=== PATIENT | male | born 1995 | race Caucasian/White ===

== ENCOUNTER 2017-08-30 16:11 | Emergency (ER) | payer OTHER, SELFPAY ==
[2017-08-30 16:53] VITALS: BP 106/57; PULSE 117; RESP 22; TEMP 38.2; O2SAT 97; BMI 30.7
[2017-08-30 17:07] LABS: UTC Influenza A Antigen Negative (Negative); UTC Influenza B Antigen Negative (Negative)
--- NOTE | 2017-08-30 17:25 | HMH.EDUTC ---
[facility] [place] Clinical Impression: Allergic reaction Qualifiers: Encounter type: initial encounter Qualified Code(s): T78.40XA - Allergy, unspecified, initial encounter Disposition: Home, Self-Care Condition on Discharge: Good Instructions: DI for General Allergic Reactions Additional Instructions: Follow up with family doctor/oncologist tomorrow as instructed Over the counter Benadryl as needed for rash or itching If rash returns/Worsens or you began having trouble breathing go straight to the ER Return if needed Look at home and see what you possibly could be having an allergic reaction to Time of Disposition: 18:17 Medical Decision Making Vital Signs: 08/30/17 16:53 Temperature 100.8 F H Temperature Source Temporal Artery Scan Pulse Rate [Right] 117 H Respiratory Rate 22 Blood Pressure [Right Arm] 106/57 Blood Pressure Mean [Right Arm] 73 Blood Pressure Source [Right Arm] Automatic Cuff Blood Pressure Position [Right Arm] Sitting 02 Sat by Pulse Oximetry 97 Oxygen Delivery Method Room Air - Lab Data Lab Results 08/30/17 16:52: Influenza Type A Ag Negative, Influenza Type B Ag Negative 08/30/17 17:06: Strep Scn Rapid Clinic Negative Orders (Tests/Meds): ED MEDICATIONS Generic Name Dose Route Start Last Admin Trade Name Freq PRN Reason Stop Dose Admin Loratadine 10 mg 08/30/17 17:45 08/30/17 17:43 Claritin 10mg Tablet PO 09/29/17 17:44 10 mg DAILY [place] Administration Discontinued Medications Generic Name Dose Route Start Last Admin Trade Name Freq PRN Reason Stop Dose Admin Diphenhydramine HCl 25 mg 08/30/17 17:32 08/30/17 17:43 Benadryl 50mg/1ml Vial IM 08/30/17 17:33 25 mg ONCE ONE Administration Famotidine 20 mg 08/30/17 17:32 08/30/17 17:43 Pepcid 20mg Tablet PO 08/30/17 17:33 20 mg ONCE ONE Administration Methylprednisolone Sodium Succinate 125 mg 08/30/17 17:32 08/30/17 17:43 Solu-Medrol 125mg/2ml Vial IM 08/30/17 17:33 125 mg ONCE ONE Administration ORDERS Category Date Time Status Strep Screen Confirmation Stat Micro 08/30/17 17:06 Received - [place] Inquiry Pt receiving controlled substance: No [place] was queried for this patient: No - Reevaluation(s) Time: 18:13 (Rash on face and back improved no longer seen, small rash still on neck but no longer itching State that he feel much better) [facility] [place] - General Stated complaint: Rash, Vomiting Mode of Arrival: Ambulatory Source of Information: Patient Limitations: No Limitations Description of Symptoms (Recalled from Triage Doc. by RN): RASH, VOMITING HEENT Symptoms (Recalled from RN notes): No Resp Symptoms (Recalled from RN notes): No Skin Symptoms (Recalled from RN notes): Yes MS Symptoms (Recalled from RN notes): No Functional Status (Recalled from RN notes): N - History of Present Illness Provider Complaint: Patient states that he has a history of brain tumors and took Chemo last week State that he is unsure what he may have got into but thinks he may be having an allergic reaction to something States that he has raised rash and hives all over his body and he is itching and digging at his skin State that he had a couple eppisodes of vomiting earlier today also State that he is unsure what he may be having a reaction that he has not changed anything at home - Related Data Home Medications Medication Instructions Recorded Confirmed levETIRAcetam [Keppra] 1,250 mg PO DAILY 08/30/17 08/30/17 Allergies Allergy/AdvReac Type Severity Reaction Status Date / Time No Known Allergies Allergy Verified 08/30/17 17:00 - Worker's Comp Is this a Worker's Comp case?: No [facility] History Other Surgeries: Yes: Cancer Surgery - *Social History Smoking Status: Never smoker Alcohol Intake: never - Psychiatric History Expresses thoughts of harming self/others: None Suicide Plan Description: No Plan ROS Obtained: Yes All systems reviewed & no addition
[2017-08-30 17:44] LABS: UTC Strep Screen (Rapid) Negative (Negative)
== END 2017-08-30 18:27 | disposition home or self-care (01) ==
PROVIDERS: Emergency Provider Nurse Practitioner
DX: L27.0 Generalized skin eruption due to drugs and medicaments taken internally (principal); T50.905A Adverse effect of unspecified drugs, medicaments and biological substances, initial encounter; D49.6 Neoplasm of unspecified behavior of brain; Z79.899 Other long term (current) drug therapy
CPT/HCPCS: 87804; 87880; 96372; 99202

== ENCOUNTER → 2017-10-17 10:33 | Outpatient (CLI) | payer OTHER, SELFPAY ==
[2017-10-17 13:15] LABS: Basophils % 0.4 % (0.1-2.0); Eosinophils # 0.1 K/mm3 (0.0-0.4); Eosinophils % 0.8 % (0.1-12.0); Hematocrit 43.1 % (42.0-52.0); Lymphocytes # 0.7 K/mm3 (0.7-4.5); Lymphocytes % 10.5 K/mm3 (10-50); Mean Corpuscular HGB Conc 32.4 g/dL (31.8-35.4); Mean Corpuscular Hemoglobin 29.4 pg (27.0-31.2); Mean Corpuscular Volume 90.9 fl (80-94); Mean Platelet Volume 7.6 fl (7.4-10.4); Monocytes # 0.4 K/mm3 (0.1-1.0); Monocytes % 6.5 % (1.7-9.3); Neutrophils # 5.4 K/mm3 (1.8-7.8); Neutrophils % 81.7 % (37.0-80.0); Platelet Count 173 K/mm3 (142-424); Red Blood Count 4.75 M/mm3 (4.60-6.20); Red Cell Distribution Width 13.2 % (11.5-17.5); White Blood Count 6.6 K/mm3 (4.5-13.0)
[2017-10-17 15:33] LABS: Alanine Aminotransferase 27 U/L (12-78); Albumin Level 3.9 gm/dL (3.4-5.0); Albumin/Globulin Ratio 1.2 (1.1-1.8); Alkaline Phosphatase 102 U/L (46-116); Aspartate Amino Transferase 6 U/L (15-37); Bilirubin,Total 0.6 mg/dL (0.2-1.0); Blood Urea Nitrogen 16 mg/dL (7-18); Calcium 8.5 mg/dL (8.5-10.1); Carbon Dioxide 29 mmol/L (21.0-32.0); Creatinine,Serum 0.95 mg/dL (0.70-1.30); Estimated Glomerular Filt Rate 101 ml/min (>60); GFR (African American) 122 ML/MIN (>60); Globulin 3.2 gm/dl (1.3-3.2); Glucose 101 mg/dL (74-106); Magnesium 1.8 mg/dL (1.4-2.2); Phosphorous 3.6 mg/dL (2.4-4.9); Total Protein,Serum 7.1 gm/dL (6.4-8.2)
[2017-10-17 18:10] LABS: Chloride 104 mmol/L (98-107); Sodium 142 mmol/L (136-145)
== END ==
PROVIDERS: PCP Family Medicine; Visit Provider Pediatrics Pediatric Hematology-Oncology
DX: D49.7 Neoplasm of unspecified behavior of endocrine glands and other parts of nervous system (principal)
CPT/HCPCS: 36415; 80053; 83735; 84100; 85025

== ENCOUNTER 2018-08-16 13:44 | Outpatient (RCR) | payer MEDICAID, SELFPAY | END 2018-08-16 13:50 | disposition home or self-care (01) | LOC: PT 13:44 | DX: G82.20 Paraplegia, unspecified (principal) | CPT/HCPCS: 97163 ==

== ENCOUNTER → 2018-08-17 11:21 | Outpatient (CLI) | payer MEDICAID, SELFPAY ==
[2018-08-17 13:49] LABS: Basophils % 0.7 % (0.1-2.0); Eosinophils % 0.2 % (0.1-12.0); Hematocrit 31.8 % (42.0-52.0); Hemoglobin 10.1 g/dL (14.1-18.0); Lymphocytes # 0.5 K/mm3 (0.7-4.5); Mean Corpuscular HGB Conc 31.8 g/dL (31.8-35.4); Mean Corpuscular Hemoglobin 32.8 pg (27.0-31.2); Mean Corpuscular Volume 103.4 fl (80-94); Mean Platelet Volume 7.9 fl (7.4-10.4); Monocytes # 0.5 K/mm3 (0.1-1.0); Monocytes % 8.9 % (1.7-9.3); Neutrophils # 4.9 K/mm3 (1.8-7.8); Neutrophils % 81.1 % (37.0-80.0); Platelet Count 76 K/mm3 (142-424); Red Blood Count 3.08 M/mm3 (4.60-6.20)
[2018-08-17 14:22] LABS: Red Cell Distribution Width 26.6 % (11.5-17.5)
== END ==
PROVIDERS: PCP Internal Medicine Adolescent Medicine; Visit Provider Nurse Practitioner Pediatrics
DX: D49.7 Neoplasm of unspecified behavior of endocrine glands and other parts of nervous system (principal); C71.9 Malignant neoplasm of brain, unspecified
CPT/HCPCS: 36415; 85025

== ENCOUNTER 2018-09-13 11:00 | Outpatient (RCR) | payer MEDICAID, SELFPAY | END 2018-09-13 11:05 | disposition home or self-care (01) | LOC: OT 11:00 | DX: D49.7 Neoplasm of unspecified behavior of endocrine glands and other parts of nervous system (principal); G82.20 Paraplegia, unspecified | CPT/HCPCS: 97110; 97166 ==

== ENCOUNTER → 2018-11-13 11:06 | Outpatient (CLI) | payer MEDICAID, SELFPAY ==
[2018-11-13 14:17] LABS: Basophils # 0.1 K/mm3 (0-0.2); Basophils % 0.9 % (0.1-2.0); Eosinophils # 0.1 K/mm3 (0.0-0.4); Eosinophils % 1.6 % (0.1-12.0); Hematocrit 39.9 % (42.0-52.0); Hemoglobin 12.4 g/dL (14.1-18.0); Lymphocytes # 0.6 K/mm3 (0.7-4.5); Lymphocytes % 9.5 % (10-50); Mean Corpuscular HGB Conc 31.2 g/dL (31.8-35.4); Mean Corpuscular Hemoglobin 32.3 pg (27.0-31.2); Mean Corpuscular Volume 103.4 fl (80-94); Mean Platelet Volume 8.8 fl (7.4-10.4); Monocytes # 0.5 K/mm3 (0.1-1.0); Monocytes % 8.5 % (1.7-9.3); Neutrophils % 79.4 % (37.0-80.0); Platelet Count 197 K/mm3 (142-424); Red Blood Count 3.86 M/mm3 (4.60-6.20); Red Cell Distribution Width 17.3 % (11.5-17.5); White Blood Count 6.3 K/mm3 (4.8-10.8)
[2018-11-13 14:54] LABS: Alanine Aminotransferase 170 U/L (12-78); Alkaline Phosphatase 60 U/L (46-116); Anion Gap 16.7 mEq/L (5-15); Aspartate Amino Transferase 94 U/L (15-37); Bilirubin,Direct 0.1 mg/dL (0.0-0.2); Bilirubin,Indirect 0.2 mg/dL (0.0-0.9); Bilirubin,Total 0.3 mg/dL (0.2-1.0); Blood Urea Nitrogen 6 mg/dL (7-18); Calcium 9.2 mg/dL (8.5-10.1); Carbon Dioxide 27 mmol/L (21.0-32.0); Chloride 103 mmol/L (98-107); Creatinine,Serum 0.62 mg/dL (0.70-1.30); Estimated Glomerular Filt Rate 164 ml/min (>60); GFR (African American) 198 ML/MIN (>60); Glucose 105 mg/dL (74-106); Phosphorous 5.6 mg/dL (2.4-4.9); Potassium 3.7 mmoL/L (3.5-5.1); Sodium 143 mmol/L (136-145); Total Protein,Serum 6.1 gm/dL (6.4-8.2)
== END ==
PROVIDERS: PCP Internal Medicine Adolescent Medicine; Visit Provider Nurse Practitioner Pediatrics
DX: C71.9 Malignant neoplasm of brain, unspecified (principal)
CPT/HCPCS: 36415; 80069; 82247; 82248; 83735; 84075; 84155; 84450; 84460; 85025

== ENCOUNTER → 2018-11-28 08:20 | Outpatient (CLI) | payer MEDICAID, SELFPAY ==
[2018-11-28 13:50] LABS: Basophils % 0.6 % (0.1-2.0); Eosinophils # 0.1 K/mm3 (0.0-0.4); Eosinophils % 2.2 % (0.1-12.0); Hematocrit 36.8 % (42.0-52.0); Hemoglobin 11.5 g/dL (14.1-18.0); Lymphocytes # 0.5 K/mm3 (0.7-4.5); Lymphocytes % 9.3 % (10-50); Mean Corpuscular HGB Conc 31.2 g/dL (31.8-35.4); Mean Corpuscular Hemoglobin 31.3 pg (27.0-31.2); Mean Corpuscular Volume 100.2 fl (80-94); Mean Platelet Volume 8.3 fl (7.4-10.4); Monocytes # 0.5 K/mm3 (0.1-1.0); Monocytes % 9.1 % (1.7-9.3); Neutrophils # 4.5 K/mm3 (1.8-7.8); Neutrophils % 78.8 % (37.0-80.0); Platelet Count 223 K/mm3 (142-424); Red Blood Count 3.68 M/mm3 (4.60-6.20); Red Cell Distribution Width 17.2 % (11.5-17.5); White Blood Count 5.7 K/mm3 (4.8-10.8)
== END ==
PROVIDERS: PCP Internal Medicine Adolescent Medicine; Visit Provider Nurse Practitioner Pediatrics
DX: D49.7 Neoplasm of unspecified behavior of endocrine glands and other parts of nervous system (principal)
CPT/HCPCS: 36415; 85025

== ENCOUNTER → 2018-12-04 10:29 | Outpatient (CLI) | payer MEDICAID, SELFPAY ==
[2018-12-04 14:36] LABS: Alanine Aminotransferase 34 U/L (12-78); Albumin Level 2.8 gm/dL (3.4-5.0); Alkaline Phosphatase 64 U/L (46-116); Aspartate Amino Transferase 14 U/L (15-37); Bilirubin,Direct 0.1 mg/dL (0.0-0.2); Bilirubin,Indirect 0.2 mg/dL (0.0-0.9); Bilirubin,Total 0.3 mg/dL (0.2-1.0)
[2018-12-04 14:40] LABS: Basophils % 0.6 % (0.1-2.0); Eosinophils # 0.1 K/mm3 (0.0-0.4); Eosinophils % 2.1 % (0.1-12.0); Hematocrit 38.4 % (42.0-52.0); Lymphocytes # 0.7 K/mm3 (0.7-4.5); Lymphocytes % 11.1 % (10-50); Mean Corpuscular HGB Conc 31.3 g/dL (31.8-35.4); Mean Corpuscular Hemoglobin 30.7 pg (27.0-31.2); Mean Corpuscular Volume 97.9 fl (80-94); Mean Platelet Volume 8.5 fl (7.4-10.4); Monocytes # 0.5 K/mm3 (0.1-1.0); Monocytes % 8.4 % (1.7-9.3); Neutrophils # 4.9 K/mm3 (1.8-7.8); Neutrophils % 77.9 % (37.0-80.0); Platelet Count 243 K/mm3 (142-424); Red Blood Count 3.92 M/mm3 (4.60-6.20); Red Cell Distribution Width 16.6 % (11.5-17.5); White Blood Count 6.3 K/mm3 (4.8-10.8)
== END ==
PROVIDERS: PCP Internal Medicine Adolescent Medicine; Visit Provider Nurse Practitioner Pediatrics
DX: D47.9 Neoplasm of uncertain behavior of lymphoid, hematopoietic and related tissue, unspecified (principal); C71.9 Malignant neoplasm of brain, unspecified
CPT/HCPCS: 36415; 80076; 85025

== ENCOUNTER → 2018-12-19 07:54 | Outpatient (CLI) | payer MEDICAID, SELFPAY ==
[2018-12-19 14:22] LABS: Basophils % 0.7 % (0.1-2.0); Eosinophils # 0.1 K/mm3 (0.0-0.4); Eosinophils % 2.4 % (0.1-12.0); Hematocrit 39.4 % (42.0-52.0); Hemoglobin 12.4 g/dL (14.1-18.0); Lymphocytes # 0.6 K/mm3 (0.7-4.5); Lymphocytes % 14.2 % (10-50); Mean Corpuscular HGB Conc 31.5 g/dL (31.8-35.4); Mean Corpuscular Hemoglobin 29.9 pg (27.0-31.2); Mean Corpuscular Volume 95.2 fl (80-94); Mean Platelet Volume 8.7 fl (7.4-10.4); Monocytes # 0.4 K/mm3 (0.1-1.0); Monocytes % 8.7 % (1.7-9.3); Neutrophils % 73.9 % (37.0-80.0); Platelet Count 243 K/mm3 (142-424); Red Blood Count 4.14 M/mm3 (4.60-6.20); Red Cell Distribution Width 16.2 % (11.5-17.5); White Blood Count 4.1 K/mm3 (4.8-10.8)
== END ==
PROVIDERS: PCP Internal Medicine Adolescent Medicine; Visit Provider Nurse Practitioner Pediatrics
DX: D49.7 Neoplasm of unspecified behavior of endocrine glands and other parts of nervous system (principal)
CPT/HCPCS: 36415; 85025

== ENCOUNTER → 2018-12-25 07:59 | Outpatient (CLI) | payer MEDICAID, SELFPAY ==
[2018-12-25 13:58] LABS: Eosinophils # 0.2 K/mm3 (0.0-0.4); Eosinophils % 3.5 % (0.1-12.0); Hematocrit 38.8 % (42.0-52.0); Hemoglobin 12.4 g/dL (14.1-18.0); Lymphocytes # 0.4 K/mm3 (0.7-4.5); Lymphocytes % 9.7 % (10-50); Mean Corpuscular HGB Conc 31.8 g/dL (31.8-35.4); Mean Corpuscular Hemoglobin 29.9 pg (27.0-31.2); Mean Platelet Volume 8.5 fl (7.4-10.4); Monocytes # 0.4 K/mm3 (0.1-1.0); Monocytes % 9.7 % (1.7-9.3); Neutrophils # 3.3 K/mm3 (1.8-7.8); Neutrophils % 76.1 % (37.0-80.0); Platelet Count 250 K/mm3 (142-424); Red Blood Count 4.13 M/mm3 (4.60-6.20); Red Cell Distribution Width 16.3 % (11.5-17.5); White Blood Count 4.4 K/mm3 (4.8-10.8)
== END ==
PROVIDERS: PCP Internal Medicine Adolescent Medicine; Visit Provider Nurse Practitioner Pediatrics
DX: D49.7 Neoplasm of unspecified behavior of endocrine glands and other parts of nervous system (principal)
CPT/HCPCS: 36415; 85025

== ENCOUNTER → 2019-01-01 10:01 | Outpatient (CLI) | payer MEDICAID, SELFPAY ==
[2019-01-01 14:38] LABS: Eosinophils # 0.1 K/mm3 (0.0-0.4); Eosinophils % 2.6 % (0.1-12.0); Hematocrit 40.5 % (42.0-52.0); Hemoglobin 12.8 g/dL (14.1-18.0); Lymphocytes # 0.3 K/mm3 (0.7-4.5); Lymphocytes % 12.6 % (10-50); Mean Corpuscular HGB Conc 31.6 g/dL (31.8-35.4); Mean Corpuscular Hemoglobin 30.2 pg (27.0-31.2); Mean Corpuscular Volume 95.3 fl (80-94); Mean Platelet Volume 8.8 fl (7.4-10.4); Monocytes # 0.4 K/mm3 (0.1-1.0); Monocytes % 15.7 % (1.7-9.3); Neutrophils # 1.5 K/mm3 (1.8-7.8); Neutrophils % 68.2 % (37.0-80.0); Platelet Count 196 K/mm3 (142-424); Red Blood Count 4.25 M/mm3 (4.60-6.20); Red Cell Distribution Width 16.5 % (11.5-17.5); White Blood Count 2.2 K/mm3 (4.8-10.8)
== END ==
PROVIDERS: PCP Internal Medicine Adolescent Medicine; Visit Provider Nurse Practitioner Pediatrics
DX: D49.7 Neoplasm of unspecified behavior of endocrine glands and other parts of nervous system (principal)
CPT/HCPCS: 36415; 85025

== ENCOUNTER → 2019-01-17 08:24 | Outpatient (CLI) | payer MEDICAID, SELFPAY ==
[2019-01-17 13:57] LABS: Basophils % 0.5 % (0.1-2.0); Eosinophils % 1.5 % (0.1-12.0); Hematocrit 37.9 % (42.0-52.0); Hemoglobin 12.5 g/dL (14.1-18.0); Lymphocytes # 0.5 K/mm3 (0.7-4.5); Lymphocytes % 16.7 % (10-50); Mean Corpuscular HGB Conc 32.9 g/dL (31.8-35.4); Mean Corpuscular Hemoglobin 29.8 pg (27.0-31.2); Mean Corpuscular Volume 90.8 fl (80-94); Mean Platelet Volume 9.8 fl (7.4-10.4); Monocytes # 0.3 K/mm3 (0.1-1.0); Neutrophils # 2.1 K/mm3 (1.8-7.8); Neutrophils % 72.2 % (37.0-80.0); Platelet Count 60 K/mm3 (142-424); Red Blood Count 4.18 M/mm3 (4.60-6.20); Red Cell Distribution Width 16.7 % (11.5-17.5); White Blood Count 2.8 K/mm3 (4.8-10.8)
[2019-01-17 14:53] LABS: Alanine Aminotransferase 65 U/L (12-78); Alkaline Phosphatase 67 U/L (46-116); Anion Gap 15.7 mEq/L (5-15); Aspartate Amino Transferase 37 U/L (15-37); Bilirubin,Direct 0.2 mg/dL (0.0-0.2); Bilirubin,Indirect 0.5 mg/dL (0.0-0.9); Bilirubin,Total 0.7 mg/dL (0.2-1.0); Blood Urea Nitrogen 10 mg/dL (7-18); Carbon Dioxide 25 mmol/L (21.0-32.0); Chloride 104 mmol/L (98-107); Creatinine,Serum 0.64 mg/dL (0.70-1.30); Estimated Glomerular Filt Rate 158 ml/min (>60); GFR (African American) 191 ML/MIN (>60); Glucose 93 mg/dL (74-106); Magnesium 1.7 mg/dL (1.4-2.2); Potassium 3.7 mmoL/L (3.5-5.1); Sodium 141 mmol/L (136-145); Total Protein,Serum 5.7 gm/dL (6.4-8.2)
== END ==
PROVIDERS: PCP Internal Medicine Adolescent Medicine; Visit Provider Pediatrics Pediatric Hematology-Oncology
DX: C71.9 Malignant neoplasm of brain, unspecified (principal)
CPT/HCPCS: 36415; 80069; 82247; 82248; 82533; 83735; 84075; 84155; 84450; 84460; 85025

== ENCOUNTER → 2019-01-19 08:29 | Outpatient (CLI) | payer MEDICAID, SELFPAY ==
[2019-01-19 13:44] LABS: Basophils % 0.4 % (0.1-2.0); Eosinophils # 0.1 K/mm3 (0.0-0.4); Eosinophils % 1.9 % (0.1-12.0); Hematocrit 38.3 % (42.0-52.0); Hemoglobin 12.6 g/dL (14.1-18.0); Lymphocytes # 0.4 K/mm3 (0.7-4.5); Mean Corpuscular HGB Conc 32.8 g/dL (31.8-35.4); Mean Corpuscular Hemoglobin 29.6 pg (27.0-31.2); Mean Corpuscular Volume 90.2 fl (80-94); Mean Platelet Volume 9.2 fl (7.4-10.4); Monocytes # 0.3 K/mm3 (0.1-1.0); Monocytes % 6.5 % (1.7-9.3); Neutrophils # 3.9 K/mm3 (1.8-7.8); Neutrophils % 82.3 % (37.0-80.0); Red Blood Count 4.25 M/mm3 (4.60-6.20); Red Cell Distribution Width 16.7 % (11.5-17.5); White Blood Count 4.8 K/mm3 (4.8-10.8)
[2019-01-19 14:10] LABS: Platelet Count 64 K/mm3 (142-424)
== END ==
PROVIDERS: PCP Internal Medicine Adolescent Medicine; Visit Provider Nurse Practitioner Pediatrics
DX: C71.9 Malignant neoplasm of brain, unspecified (principal)
CPT/HCPCS: 36415; 85025

== ENCOUNTER → 2019-01-22 10:51 | Outpatient (CLI) | payer MEDICAID, SELFPAY ==
[2019-01-22 13:51] LABS: Basophils % 0.5 % (0.1-2.0); Eosinophils # 0.1 K/mm3 (0.0-0.4); Eosinophils % 1.9 % (0.1-12.0); Hematocrit 36.5 % (42.0-52.0); Hemoglobin 12.2 g/dL (14.1-18.0); Lymphocytes # 0.5 K/mm3 (0.7-4.5); Lymphocytes % 16.4 % (10-50); Mean Corpuscular HGB Conc 33.5 g/dL (31.8-35.4); Mean Corpuscular Hemoglobin 29.6 pg (27.0-31.2); Mean Corpuscular Volume 88.3 fl (80-94); Mean Platelet Volume 9.2 fl (7.4-10.4); Monocytes # 0.3 K/mm3 (0.1-1.0); Monocytes % 8.8 % (1.7-9.3); Neutrophils # 2.2 K/mm3 (1.8-7.8); Neutrophils % 72.4 % (37.0-80.0); Platelet Count 84 K/mm3 (142-424); Red Blood Count 4.13 M/mm3 (4.60-6.20); Red Cell Distribution Width 16.4 % (11.5-17.5)
== END ==
PROVIDERS: PCP Internal Medicine Adolescent Medicine; Visit Provider Nurse Practitioner Pediatrics
DX: D49.7 Neoplasm of unspecified behavior of endocrine glands and other parts of nervous system (principal)
CPT/HCPCS: 36415; 85025

== ENCOUNTER → 2019-01-30 11:13 | Outpatient (CLI) | payer MEDICAID, SELFPAY ==
[2019-01-30 15:15] LABS: Basophils % 0.9 % (0.1-2.0); Eosinophils % 1.4 % (0.1-12.0); Hematocrit 39.2 % (42.0-52.0); Hemoglobin 12.4 g/dL (14.1-18.0); Lymphocytes # 0.5 K/mm3 (0.7-4.5); Mean Corpuscular HGB Conc 31.5 g/dL (31.8-35.4); Mean Corpuscular Hemoglobin 28.2 pg (27.0-31.2); Mean Corpuscular Volume 89.7 fl (80-94); Mean Platelet Volume 9.5 fl (7.4-10.4); Monocytes # 0.3 K/mm3 (0.1-1.0); Monocytes % 12.9 % (1.7-9.3); Neutrophils # 1.8 K/mm3 (1.8-7.8); Neutrophils % 66.8 % (37.0-80.0); Platelet Count 147 K/mm3 (142-424); Red Blood Count 4.38 M/mm3 (4.60-6.20); Red Cell Distribution Width 16.7 % (11.5-17.5); White Blood Count 2.7 K/mm3 (4.8-10.8)
== END ==
PROVIDERS: PCP Internal Medicine Adolescent Medicine; Visit Provider Nurse Practitioner Pediatrics
DX: D49.7 Neoplasm of unspecified behavior of endocrine glands and other parts of nervous system (principal)
CPT/HCPCS: 36415; 85025

== ENCOUNTER → 2019-02-05 10:36 | Outpatient (CLI) | payer MEDICAID, SELFPAY ==
[2019-02-05 13:42] LABS: Basophils % 0.6 % (0.1-2.0); Eosinophils # 0.1 K/mm3 (0.0-0.4); Eosinophils % 1.6 % (0.1-12.0); Hematocrit 38.8 % (42.0-52.0); Hemoglobin 11.9 g/dL (14.1-18.0); Lymphocytes # 0.5 K/mm3 (0.7-4.5); Lymphocytes % 14.1 % (10-50); Mean Corpuscular HGB Conc 30.7 g/dL (31.8-35.4); Mean Corpuscular Hemoglobin 27.3 pg (27.0-31.2); Mean Platelet Volume 8.5 fl (7.4-10.4); Monocytes # 0.4 K/mm3 (0.1-1.0); Monocytes % 11.2 % (1.7-9.3); Neutrophils # 2.3 K/mm3 (1.8-7.8); Neutrophils % 72.5 % (37.0-80.0); Platelet Count 202 K/mm3 (142-424); Red Blood Count 4.36 M/mm3 (4.60-6.20); Red Cell Distribution Width 17.1 % (11.5-17.5); White Blood Count 3.2 K/mm3 (4.8-10.8)
== END ==
PROVIDERS: PCP Internal Medicine Adolescent Medicine; Visit Provider Nurse Practitioner Pediatrics
DX: D49.7 Neoplasm of unspecified behavior of endocrine glands and other parts of nervous system (principal)
CPT/HCPCS: 36415; 85025

== ENCOUNTER → 2019-02-13 09:09 | Outpatient (CLI) | payer MEDICAID, SELFPAY ==
[2019-02-13 13:59] LABS: Basophils % 0.6 % (0.1-2.0); Eosinophils # 0.1 K/mm3 (0.0-0.4); Eosinophils % 1.6 % (0.1-12.0); Hematocrit 41.1 % (42.0-52.0); Lymphocytes # 0.4 K/mm3 (0.7-4.5); Lymphocytes % 10.2 % (10-50); Mean Corpuscular HGB Conc 31.6 g/dL (31.8-35.4); Mean Corpuscular Hemoglobin 29.2 pg (27.0-31.2); Mean Corpuscular Volume 92.2 fl (80-94); Mean Platelet Volume 8.6 fl (7.4-10.4); Monocytes # 0.4 K/mm3 (0.1-1.0); Neutrophils # 3.2 K/mm3 (1.8-7.8); Neutrophils % 78.6 % (37.0-80.0); Platelet Count 175 K/mm3 (142-424); Red Blood Count 4.46 M/mm3 (4.60-6.20); Red Cell Distribution Width 17.4 % (11.5-17.5)
== END ==
PROVIDERS: PCP Internal Medicine Adolescent Medicine; Visit Provider Nurse Practitioner Pediatrics
DX: D49.7 Neoplasm of unspecified behavior of endocrine glands and other parts of nervous system (principal)
CPT/HCPCS: 36415; 85025

== ENCOUNTER → 2019-03-14 10:19 | Outpatient (CLI) | payer OTHER, SELFPAY ==
[2019-03-14 14:30] LABS: Basophils % 0.9 % (0.1-2.0); Eosinophils # 0.1 K/mm3 (0.0-0.4); Eosinophils % 2.9 % (0.1-12.0); Hematocrit 35.9 % (42.0-52.0); Hemoglobin 10.9 g/dL (14.1-18.0); Lymphocytes # 0.5 K/mm3 (0.7-4.5); Lymphocytes % 15.6 % (10-50); Mean Corpuscular HGB Conc 30.3 g/dL (31.8-35.4); Mean Corpuscular Hemoglobin 28.1 pg (27.0-31.2); Mean Corpuscular Volume 92.7 fl (80-94); Mean Platelet Volume 8.5 fl (7.4-10.4); Monocytes # 0.4 K/mm3 (0.1-1.0); Monocytes % 11.6 % (1.7-9.3); Neutrophils # 2.4 K/mm3 (1.8-7.8); Platelet Count 186 K/mm3 (142-424); Red Blood Count 3.87 M/mm3 (4.60-6.20); Red Cell Distribution Width 19.1 % (11.5-17.5); White Blood Count 3.5 K/mm3 (4.8-10.8)
== END ==
PROVIDERS: PCP Internal Medicine Adolescent Medicine; Visit Provider Nurse Practitioner Pediatrics
DX: D49.7 Neoplasm of unspecified behavior of endocrine glands and other parts of nervous system (principal)
CPT/HCPCS: 36415; 85025

== ENCOUNTER → 2019-03-21 10:49 | Outpatient (CLI) | payer OTHER, SELFPAY ==
[2019-03-21 13:46] LABS: Basophils # 0.1 K/mm3 (0-0.2); Basophils % 1.7 % (0.1-2.0); Eosinophils # 0.1 K/mm3 (0.0-0.4); Eosinophils % 3.8 % (0.1-12.0); Hematocrit 36.3 % (42.0-52.0); Hemoglobin 11.4 g/dL (14.1-18.0); Lymphocytes # 0.5 K/mm3 (0.7-4.5); Lymphocytes % 16.1 % (10-50); Mean Corpuscular HGB Conc 31.3 g/dL (31.8-35.4); Mean Corpuscular Hemoglobin 30.2 pg (27.0-31.2); Mean Corpuscular Volume 96.4 fl (80-94); Monocytes # 0.3 K/mm3 (0.1-1.0); Monocytes % 10.5 % (1.7-9.3); Neutrophils # 2.1 K/mm3 (1.8-7.8); Neutrophils % 67.7 % (37.0-80.0); Platelet Count 138 K/mm3 (142-424); Red Blood Count 3.76 M/mm3 (4.60-6.20); Red Cell Distribution Width 18.9 % (11.5-17.5); White Blood Count 3.1 K/mm3 (4.8-10.8)
[2019-03-21 15:29] LABS: Albumin Level 2.7 gm/dL (3.4-5.0); Blood Urea Nitrogen 12 mg/dL (7-18); Calcium 9.3 mg/dL (8.5-10.1); Carbon Dioxide 26 mmol/L (21.0-32.0); Chloride 104 mmol/L (98-107); Creatinine,Serum 1.08 mg/dL (0.70-1.30); Estimated Glomerular Filt Rate 85 ml/min (>60); GFR (African American) 103 ML/MIN (>60); Glucose 97 mg/dL (74-106); Phosphorous 4.7 mg/dL (2.4-4.9); Sodium 139 mmol/L (136-145)
== END ==
PROVIDERS: Nurse Practitioner Pediatrics; PCP Internal Medicine Adolescent Medicine; Visit Provider Nurse Practitioner Pediatrics
DX: C71.9 Malignant neoplasm of brain, unspecified (principal)
CPT/HCPCS: 36415; 80069; 85025

== ENCOUNTER → 2019-03-27 10:34 | Outpatient (CLI) | payer OTHER, SELFPAY ==
[2019-03-27 14:20] LABS: Basophils % 0.4 % (0.1-2.0); Eosinophils # 0.1 K/mm3 (0.0-0.4); Eosinophils % 2.5 % (0.1-12.0); Hematocrit 32.9 % (42.0-52.0); Hemoglobin 10.8 g/dL (14.1-18.0); Lymphocytes # 0.4 K/mm3 (0.7-4.5); Lymphocytes % 10.3 % (10-50); Mean Corpuscular HGB Conc 32.7 g/dL (31.8-35.4); Mean Corpuscular Hemoglobin 31.2 pg (27.0-31.2); Mean Corpuscular Volume 95.5 fl (80-94); Mean Platelet Volume 8.2 fl (7.4-10.4); Monocytes # 0.3 K/mm3 (0.1-1.0); Monocytes % 6.9 % (1.7-9.3); Neutrophils # 3.5 K/mm3 (1.8-7.8); Neutrophils % 79.9 % (37.0-80.0); Platelet Count 113 K/mm3 (142-424); Red Blood Count 3.45 M/mm3 (4.60-6.20); Red Cell Distribution Width 18.2 % (11.5-17.5); White Blood Count 4.3 K/mm3 (4.8-10.8)
[2019-03-27 14:24] LABS: Albumin Level 2.7 gm/dL (3.4-5.0); Anion Gap 13.4 mEq/L (5-15); Blood Urea Nitrogen 10 mg/dL (7-18); Calcium 9.4 mg/dL (8.5-10.1); Carbon Dioxide 27 mmol/L (21.0-32.0); Chloride 103 mmol/L (98-107); Creatinine,Serum 0.82 mg/dL (0.70-1.30); Estimated Glomerular Filt Rate 117 ml/min (>60); GFR (African American) 142 ML/MIN (>60); Glucose 99 mg/dL (74-106); Phosphorous 3.8 mg/dL (2.4-4.9); Potassium 3.4 mmoL/L (3.5-5.1); Sodium 140 mmol/L (136-145)
== END ==
PROVIDERS: PCP Internal Medicine Adolescent Medicine; Visit Provider Nurse Practitioner Pediatrics
DX: D49.7 Neoplasm of unspecified behavior of endocrine glands and other parts of nervous system (principal); C71.9 Malignant neoplasm of brain, unspecified
CPT/HCPCS: 36415; 80069; 85025

== ENCOUNTER → 2019-04-02 09:39 | Outpatient (CLI) | payer OTHER, SELFPAY ==
[2019-04-02 13:28] LABS: Basophils % 0.5 % (0.1-2.0); Eosinophils # 0.1 K/mm3 (0.0-0.4); Eosinophils % 1.8 % (0.1-12.0); Hemoglobin 10.8 g/dL (14.1-18.0); Lymphocytes # 0.4 K/mm3 (0.7-4.5); Lymphocytes % 9.2 % (10-50); Mean Corpuscular HGB Conc 31.7 g/dL (31.8-35.4); Mean Corpuscular Hemoglobin 30.6 pg (27.0-31.2); Mean Corpuscular Volume 96.3 fl (80-94); Mean Platelet Volume 7.4 fl (7.4-10.4); Monocytes # 0.3 K/mm3 (0.1-1.0); Monocytes % 6.2 % (1.7-9.3); Neutrophils # 3.9 K/mm3 (1.8-7.8); Neutrophils % 82.3 % (37.0-80.0); Platelet Count 138 K/mm3 (142-424); Red Blood Count 3.53 M/mm3 (4.60-6.20); Red Cell Distribution Width 17.5 % (11.5-17.5); White Blood Count 4.8 K/mm3 (4.8-10.8)
[2019-04-02 13:34] LABS: Anion Gap 17.7 mEq/L (5-15); Blood Urea Nitrogen 8 mg/dL (7-18); Calcium 9.6 mg/dL (8.5-10.1); Carbon Dioxide 24 mmol/L (21.0-32.0); Chloride 101 mmol/L (98-107); Creatinine,Serum 0.62 mg/dL (0.70-1.30); Estimated Glomerular Filt Rate 162 ml/min (>60); GFR (African American) 196 ML/MIN (>60); Glucose 76 mg/dL (74-106); Phosphorous 3.9 mg/dL (2.4-4.9); Potassium 3.7 mmoL/L (3.5-5.1); Sodium 139 mmol/L (136-145)
== END ==
PROVIDERS: PCP Internal Medicine Adolescent Medicine; Visit Provider Nurse Practitioner Pediatrics
DX: D49.7 Neoplasm of unspecified behavior of endocrine glands and other parts of nervous system (principal)
CPT/HCPCS: 36415; 80069; 85025

== ENCOUNTER → 2019-04-09 10:57 | Outpatient (CLI) | payer OTHER, SELFPAY ==
[2019-04-09 14:32] LABS: Basophils % 0.6 % (0.1-2.0); Eosinophils % 0.6 % (0.1-12.0); Hematocrit 36.1 % (42.0-52.0); Hemoglobin 11.3 g/dL (14.1-18.0); Lymphocytes # 0.5 K/mm3 (0.7-4.5); Lymphocytes % 11.6 % (10-50); Mean Corpuscular HGB Conc 31.4 g/dL (31.8-35.4); Mean Corpuscular Hemoglobin 30.5 pg (27.0-31.2); Mean Corpuscular Volume 97.2 fl (80-94); Mean Platelet Volume 8.3 fl (7.4-10.4); Monocytes # 0.5 K/mm3 (0.1-1.0); Monocytes % 10.9 % (1.7-9.3); Neutrophils # 3.2 K/mm3 (1.8-7.8); Neutrophils % 76.2 % (37.0-80.0); Platelet Count 258 K/mm3 (142-424); Red Blood Count 3.72 M/mm3 (4.60-6.20); Red Cell Distribution Width 17.4 % (11.5-17.5); White Blood Count 4.2 K/mm3 (4.8-10.8)
[2019-04-09 17:36] LABS: Albumin Level 3.1 gm/dL (3.4-5.0); Anion Gap 18.3 mEq/L (5-15); Blood Urea Nitrogen 11 mg/dL (7-18); Calcium 10.5 mg/dL (8.5-10.1); Carbon Dioxide 25 mmol/L (21.0-32.0); Chloride 100 mmol/L (98-107); Creatinine,Serum 0.53 mg/dL (0.70-1.30); Estimated Glomerular Filt Rate 194 ml/min (>60); GFR (African American) 235 ML/MIN (>60); Glucose 94 mg/dL (74-106); Potassium 3.3 mmoL/L (3.5-5.1); Sodium 140 mmol/L (136-145)
== END ==
PROVIDERS: PCP Internal Medicine Adolescent Medicine; Visit Provider Nurse Practitioner Pediatrics
DX: D49.7 Neoplasm of unspecified behavior of endocrine glands and other parts of nervous system (principal)
CPT/HCPCS: 36415; 80069; 85025

== ENCOUNTER → 2019-04-10 10:17 | Outpatient (CLI) | payer OTHER, SELFPAY ==
[2019-04-10 10:21] LABS: Microscopic, Urine URINE MICROSCOPIC (MICROSCOPIC)
[2019-04-10 14:43] LABS: Appearance,Urine CLOUDY (Clear); Blood, Urine 2+ (Negative); Color,Urine YELLOW (Yellow); Glucose,Urine (UA) Negative (Negative); Ketones,Urine 3+ (Negative); Leukocyte Esterase,Urine 2+ (Negative); Nitrate,Urine POSITIVE (Negative); Protein,Urine 2+ (Negative); Specific Gravity, Urine 1.025 (1.005-1.030)
[2019-04-10 14:58] LABS: Bilirubin,Urine Negative (Negative)
[2019-04-10 15:06] LABS: Bacteria,Urine 2+ /lpf; WBC,Urine 20-50 #/hpf (0-3)
== END ==
PROVIDERS: PCP Internal Medicine Adolescent Medicine; Visit Provider Nurse Practitioner Pediatrics
DX: D49.7 Neoplasm of unspecified behavior of endocrine glands and other parts of nervous system (principal)
CPT/HCPCS: 81001; 87086; 87088; 87186

== ENCOUNTER → 2019-04-16 10:29 | Outpatient (CLI) | payer OTHER, SELFPAY ==
[2019-04-16 14:02] LABS: Basophils % 0.2 % (0.1-2.0); Eosinophils # 0.1 K/mm3 (0.0-0.4); Eosinophils % 1.8 % (0.1-12.0); Hematocrit 33.8 % (42.0-52.0); Hemoglobin 10.3 g/dL (14.1-18.0); Lymphocytes # 0.5 K/mm3 (0.7-4.5); Lymphocytes % 9.9 % (10-50); Mean Corpuscular HGB Conc 30.5 g/dL (31.8-35.4); Mean Corpuscular Hemoglobin 30.6 pg (27.0-31.2); Mean Corpuscular Volume 100.3 fl (80-94); Mean Platelet Volume 7.9 fl (7.4-10.4); Monocytes # 0.5 K/mm3 (0.1-1.0); Monocytes % 9.9 % (1.7-9.3); Neutrophils % 78.3 % (37.0-80.0); Platelet Count 199 K/mm3 (142-424); Red Blood Count 3.37 M/mm3 (4.60-6.20); Red Cell Distribution Width 17.2 % (11.5-17.5); White Blood Count 5.1 K/mm3 (4.8-10.8)
== END ==
PROVIDERS: PCP Internal Medicine Adolescent Medicine; Visit Provider Nurse Practitioner Pediatrics
DX: D49.7 Neoplasm of unspecified behavior of endocrine glands and other parts of nervous system (principal)
CPT/HCPCS: 36415; 85025

== ENCOUNTER → 2019-05-01 10:13 | Outpatient (CLI) | payer MEDICAID, SELFPAY ==
[2019-05-01 13:35] LABS: Basophils # 0.1 K/mm3 (0-0.2); Basophils % 1.4 % (0.1-2.0); Eosinophils # 0.1 K/mm3 (0.0-0.4); Eosinophils % 2.5 % (0.1-12.0); Hematocrit 32.4 % (42.0-52.0); Hemoglobin 10.4 g/dL (14.1-18.0); Lymphocytes # 0.6 K/mm3 (0.7-4.5); Lymphocytes % 15.5 % (10-50); Mean Corpuscular HGB Conc 32.2 g/dL (31.8-35.4); Mean Corpuscular Hemoglobin 31.6 pg (27.0-31.2); Mean Corpuscular Volume 98.2 fl (80-94); Mean Platelet Volume 7.6 fl (7.4-10.4); Monocytes # 0.4 K/mm3 (0.1-1.0); Monocytes % 10.4 % (1.7-9.3); Neutrophils # 2.6 K/mm3 (1.8-7.8); Neutrophils % 70.3 % (37.0-80.0); Platelet Count 209 K/mm3 (142-424); Red Blood Count 3.31 M/mm3 (4.60-6.20); Red Cell Distribution Width 16.2 % (11.5-17.5); White Blood Count 3.7 K/mm3 (4.8-10.8)
[2019-05-01 13:50] LABS: Alanine Aminotransferase 21 U/L (12-78); Albumin Level 2.9 gm/dL (3.4-5.0); Alkaline Phosphatase 96 U/L (46-116); Anion Gap 14.2 mEq/L (5-15); Aspartate Amino Transferase 16 U/L (15-37); Bilirubin,Direct 0.1 mg/dL (0.0-0.2); Bilirubin,Indirect 0.3 mg/dL (0.0-0.9); Bilirubin,Total 0.4 mg/dL (0.2-1.0); Blood Urea Nitrogen 10 mg/dL (7-18); Calcium 9.7 mg/dL (8.5-10.1); Carbon Dioxide 24 mmol/L (21.0-32.0); Chloride 103 mmol/L (98-107); Creatinine,Serum 0.61 mg/dL (0.70-1.30); Estimated Glomerular Filt Rate 165 ml/min (>60); GFR (African American) 200 ML/MIN (>60); Glucose 90 mg/dL (74-106); Magnesium 1.9 mg/dL (1.4-2.2); Phosphorous 3.4 mg/dL (2.4-4.9); Potassium 4.2 mmoL/L (3.5-5.1); Sodium 137 mmol/L (136-145); Total Protein,Serum 5.9 gm/dL (6.4-8.2)
== END ==
PROVIDERS: PCP Internal Medicine Adolescent Medicine; Visit Provider Pediatrics Pediatric Hematology-Oncology
DX: C71.9 Malignant neoplasm of brain, unspecified (principal)
CPT/HCPCS: 36415; 80069; 80076; 83735; 85025